=== PATIENT | male | born 1930 | race American Indian/Alaskan Native ===

== ENCOUNTER 2022-02-14 19:17 | Inpatient (IN) | payer OTHER ==
[2022-02-14] MEDS ORDERED: ALBUTEROL 2.5 MG/3 ML NEBU IH PRN (20:41)
[2022-02-14] MEDS ORDERED: ONDANSETRON 4 MG/2 ML INJ IV PRN (20:41)
[2022-02-14] MEDS ORDERED: SODIUM CHLORIDE 0.9% 1000 ML IV SOLN IV SCH (20:41)
[2022-02-14] MEDS ORDERED: ACETAMINOPHEN 325 MG TAB PO PRN ×2 (20:41)
[2022-02-14] MEDS ORDERED: HYDROmorphone 0.5 MG/0.5 ML INJ IV PRN ×2 (20:41)
--- NOTE | 2022-02-14 20:44 | History and Physical Report ---
History of Present Illness Chief complaint: He is sick and his urine is dark and smells bad History of present illness: 89 YO Male with Vascular Dementia, Cerebral Atherosclerosis, BPH with Indwelling Cruz catheter presents ED for evaluation. Patient is confused with diminished cognition at time of evaluation is unable to provide history. Patient history taken from EMS staff, ED staff, as well as the patient's daughter was made available telephone for interview. As per daughter " he is sick and his urine is dark and smells bad". Patient reports that the patient has experienced the aforementioned symptoms over the past 2 days with persistent and worsening symptoms over the same timeframe. EMS notified and upon arrival the patient was found to be in distress and subsequent transported to [facility] for further care and evaluation of the aforementioned symptoms. The patient was seen and evaluated in the emergency department. All lab and imaging studies reviewed. Patient found to have a systolic blood pressure in the 60s with self suspected secondary to his urinary tract infection, as well as toxic metabolic encephalopathy. Patient admitted to ICU and initiated on sepsis protocol.. Care team consulted. Patient has diminished cognition at time of evaluation but has a positive gag reflex and is able to protect his airway without difficulty. No prior admission for review. No medication listed at time of admission for reconciliation. Advanced care planning conducted in ED. Past History Past Medical History: other (See HPI) Past Surgical History: No surgical history, Other (Reviewed) Social history: single. denies: smoking, alcohol abuse, prescription drug abuse Family history: hypertension Medications and Allergies Allergies Allergy/AdvReac Type Severity Reaction Status Date / Time No Known Allergies Allergy Verified 02/14/22 22:20 Active Meds: Active Medications Sodium Chloride (Nacl 0.9% 1000 Ml) 1,000 mls @ 999 mls/hr IV BOLUS ONE Stop: 02/14/22 22:00 NORepinephrine/NS 8 MG-250 ML (Norepinephrine/Ns 8 Mg-250 Ml (Double Conc)) 8 mg in 250 mls @ 11.907 mls/hr IV TITRATE DEREJE; Protocol Review of Systems ROS unobtainable: due to mental status Exam - Constitutional Vitals: Temp Pulse Resp BP Pulse Ox 98.2 F 86 16 63/16 12 L 02/14/22 19:23 02/14/22 20:27 02/14/22 19:23 02/14/22 20:29 02/14/22 20:27 General appearance: Present: mild distress - EENT Eyes: Present: PERRL ENT: hearing intact, clear oral mucosa, hearing decreased - Neck Neck: Present: supple, normal ROM - Respiratory Respiratory effort: normal Respiratory: bilateral: diminished - Cardiovascular Heart Sounds: Present: S1 & S2. Absent: rub, click - Extremities Extremities: pulses symmetrical, No edema Peripheral Pulses: abnormal (Capillary refill greater than 3.5 seconds) - Integumentary Integumentary: Present: clear, dry, clammy, decreased turgor - Musculoskeletal Musculoskeletal: generalized weakness - Psychiatric Psychiatric: no appropriate mood/affect, no intact judgment & insight, no memory intact - Neurologic Neurologic: CNII-XII intact, no focal deficits, moves all extremities, no gait normal Results - Labs CBC & Chem 7: 02/14/22 20:41 02/14/22 20:41 Assessment and Plan - Patient Problems (1) Sepsis Current Visit: Yes Status: Acute Qualifiers: Sepsis acute organ dysfunction status: with acute organ dysfunction Plan to address problem: Sepsis protocol: Chest x-ray, CBC, urinalysis, IV fluid resuscitation therapy, IV antibiotic therapy, monitor urine output every shift, monitor fluid balance, maintain mean arterial pressure greater than equal 65, IV pressor support, monit or fluid balance. Serial lactic acid level, blood culture. The high probability of a clinically significant, sudden or life threatening deterioration of the [cardiac, pulmonary, neuro, renal, infectious disease] system(s) required my full and direct attention, intervention and personal management. The aggregate critical care time was [95] minutes. This time is in addition to time spent performing reported procedures but includes the following: [x] Data Review and interpretation [x] Patient assessment and monitoring of vital signs [x] Documentation [x] Medication orders and management (2) UTI (urinary tract infection) Current Visit: Yes Status: Acute Qualifiers: Encounter type: initial encounter Plan to address problem: IV antibiotic therapy, supportive care. Blood culture, urinalysis. (3) Toxic metabolic encephalopathy Current Visit: Yes Status: Acute Plan to address problem: Treat sepsis, supportive care. Neuro check. (4) Hypertension Current Visit: Yes Status: Acute Qualifiers: Hypertension type: primary hypertension Qualified Code(s): I10 - Essential (primary) hypertension Plan to address problem: Monitor blood pressure every shift. Hold antihypertensive therapy for now. Patient currently hypotensive. (5) DVT prophylaxis Current Visit: Yes Status: Acute Plan to address problem: SCD to bilateral lower extremities while in bed (6) Advance care planning Current Visit: Yes Status: Acute Plan to address problem: Disease education done, care plan discussed, diagnoses discussed, prognosis discussed, patient is full code. +30 minutes. (7) Preventative health care Current Visit: Yes Status: Acute Plan to address problem: Patient to follow-up with primary care physician for all age and risk factor appropriate screening test. +30 minutes.
[2022-02-14] MEDS ORDERED: NORepinephrine/NS 8 MG-250 ML 8 MG/250 ML INFUS..BTL IV SCH (21:00)
[2022-02-14] MEDS ORDERED: SODIUM CHLORIDE 0.9% 1000 ML 1,000 ML IV ONE (21:00)
[2022-02-14 21:16] LABS: Basophils # (Auto) 0.2 K/mm3 (0.0-0.1); Basophils % (Auto) 1.8 % (0.0-1.8); Eosinophils % (Auto) 0.2 % (0.0-4.3); Hematocrit 26.3 % (35.5-45.6); Hemoglobin 8.9 gm/dl (11.8-15.2); Lymphocytes # (Auto) 0.9 K/mm3 (1.2-5.4); Lymphocytes % (Auto) 10.5 % (13.4-35.0); Mean Corpuscular HGB Conc 34 % (32-34); Mean Corpuscular Volume 88 fl (84-94); Monocytes # (Auto) 0.7 K/mm3 (0.0-0.8); Monocytes % (Auto) 7.8 % (0.0-7.3); Platelet Count 261 K/mm3 (140-440); Red Blood Count 2.98 M/mm3 (3.65-5.03); Red Cell Distribution Width 12.9 % (13.2-15.2)
[2022-02-14 21:41] LABS: BUN/Creatinine Ratio 22; Blood Urea Nitrogen 28 mg/dL (9-20); Calcium 7.2 mg/dL (8.4-10.2); Hemolysis Index 8
[2022-02-14] MEDS ORDERED: POTASSIUM CHLORIDE ER 20 MEQ TAB PO ONE (23:03)
--- NOTE | 2022-02-14 23:07 | Emergency Department Report ---
ED General Adult HPI - General Chief complaint: Urogenital-Male Stated complaint: URINARY RETENTION PUI?: No Time Seen by Provider: 02/14/22 19:36 Source: patient, EMS Mode of arrival: Stretcher Limitations: No Limitations - History of Present Illness Initial comments: Urinary retention for 48 hours. Daughter reports this has been an ongoing issue with the catheter. -: Gradual, days(s) Severity scale (0 -10): 0 Worsens with: none Associated Symptoms: weakness. denies: denies other symptoms, headaches, loss of appetite Treatments Prior to Arrival: none - Related Data Home Medications Medication Instructions Recorded Confirmed Last Taken Polyethylene Glycol 8000 7 gm PO DAILY 02/15/22 02/15/22 02/13/22 [Polyethylene Glycol] Potassium Chloride [K-Dur] 20 meq PO QDAY 02/15/22 02/15/22 02/13/22 Triamterene/Hydrochlorothiazid 0.5 tab PO DAILY 02/15/22 02/15/22 02/13/22 [Triamterene-Hctz 75-50 mg Tab] amLODIPine [Norvasc] 10 mg PO DAILY 02/15/22 02/15/22 02/13/22 levETIRAcetam [Keppra TAB] 500 mg PO BID 02/15/22 02/15/22 02/13/22 Allergies Allergy/AdvReac Type Severity Reaction Status Date / Time No Known Allergies Allergy Verified 02/14/22 22:20 ED Review of Systems ROS: Stated complaint: URINARY RETENTION Other details as noted in HPI Constitutional: denies: chills, fever Eyes: denies: eye pain, eye discharge, vision change ENT: denies: ear pain, throat pain Respiratory: denies: cough, shortness of breath, wheezing Cardiovascular: denies: chest pain, palpitations Endocrine: no symptoms reported Gastrointestinal: denies: abdominal pain, nausea, diarrhea Genitourinary: denies: urgency, dysuria Musculoskeletal: denies: back pain, joint swelling, arthralgia Skin: denies: rash, lesions Neurological: denies: headache, weakness, paresthesias Psychiatric: denies: anxiety, depression Hematological/Lymphatic: denies: easy bleeding, easy bruising ED Past Medical Hx - Past Medical History Previous Medical History?: Yes Hx Hypertension: No Hx CVA: No Additional medical history: michael in place - Social History Smoking Status: Never Smoker Substance Use Type: None - Medications Home Medications: Home Medications Medication Instructions Recorded Confirmed Last Taken Type Polyethylene Glycol 8000 7 gm PO DAILY 02/15/22 02/15/22 02/13/22 History [Polyethylene Glycol] Potassium Chloride [K-Dur] 20 meq PO QDAY 02/15/22 02/15/22 02/13/22 History Triamterene/Hydrochlorothiazid 0.5 tab PO DAILY 02/15/22 02/15/22 02/13/22 History [Triamterene-Hctz 75-50 mg Tab] amLODIPine [Norvasc] 10 mg PO DAILY 02/15/22 02/15/22 02/13/22 History levETIRAcetam [Keppra TAB] 500 mg PO BID 02/15/22 02/15/22 02/13/22 History ED Physical Exam - General Limitations: No Limitations General appearance: alert, cachectic - Head Head exam: Present: atraumatic, normocephalic - Eye Eye exam: Present: normal appearance - ENT ENT exam: Present: mucous membranes moist - Neck Neck exam: Present: normal inspection - Respiratory Respiratory exam: Present: normal lung sounds bilaterally. Absent: respiratory distress - Cardiovascular Cardiovascular Exam: Present: regular rate, normal rhythm. Absent: systolic murmur, diastolic murmur, rubs, gallop - GI/Abdominal GI/Abdominal exam: Present: soft, normal bowel sounds - Rectal Rectal exam: Present: deferred - Extremities Exam Extremities exam: Present: normal inspection - Back Exam Back exam: Present: normal inspection - Neurological Exam Neurological exam: Present: alert, oriented X3 - Psychiatric Psychiatric exam: Present: normal affect, normal mood - Skin Skin exam: Present: warm, dry, intact, normal color. Absent: rash ED Course Vital Signs 02/14/22 02/14/22 02/14/22 19:23 19:41 20:26 Temperature 98.2 F 98.3 F Pulse Rate 100 H 81 Respiratory 16 14 Rate Blood Pressure Blood Pressure 114/68 133/60 [Right] O2 Sat by Pulse 99 100 98 Oximetry 02/14/22 02/14/22 02/14/22 20:27 20:29 20:31 Temperature Pulse Rate 86 Respiratory Rate Blood Pressure 63/16 Blood Pressure 63/16 [Right] O2 Sat by Pulse 12 L 98 Oximetry 02/14/22 02/14/22 02/14/22 20:45 20:47 20:57 Temperature 97.8 F Pulse Rate Respiratory Rate Blood Pressure Blood Pressure 73/26 [Right] O2 Sat by Pulse 100 Oximetry 02/14/22 02/14/22 02/14/22 21:01 21:07 21:11 Temperature Pulse Rate 79 Respiratory 14 Rate Blood Pressure 73/26 Blood Pressure [Right] O2 Sat by Pulse 98 98 97 Oximetry 02/14/22 02/14/22 02/14/22 21:16 21:21 21:31 Temperature Pulse Rate Respiratory Rate Blood Pressure Blood Pressure 156/88 [Right] O2 Sat by Pulse 96 97 Oximetry 02/14/22 02/14/22 02/14/22 21:41 21:51 22:01 Temperature Pulse Rate Respiratory Rate Blood Pressure Blood Pressure [Right] O2 Sat by Pulse 97 99 99 Oximetry 02/14/22 02/14/22 02/14/22 22:11 22:21 22:31 Temperature Pulse Rate Respiratory Rate Blood Pressure Blood Pressure [Right] O2 Sat by Pulse 96 99 99 Oximetry 02/14/22 02/14/22 02/14/22 22:41 22:51 23:00 Temperature Pulse Rate Respiratory Rate Blood Pressure Blood Pressure [Right] O2 Sat by Pulse 98 98 99 Oximetry ED Medical Decision Making - Lab Data Result diagrams: 02/15/22 05:00 02/15/22 04:00 - Radiology Data Radiology results: report reviewed, image reviewed - Medical Decision Making hypotension noted , fluids given started on pressors started on abx , BP normalised, Critical care attestation.: If time is entered above; I have spent that time in minutes in the direct care of this critically ill patient, excluding procedure time. ED Disposition Clinical Impression: Urinary retention, Hypokalemia, Hypotension Disposition: ADMITTED INPATIENT Is pt being admited?: Yes Does the pt Need Aspirin: No Condition: Fair
--- NOTE | 2022-02-14 23:08 | XRay Report ---
CHEST 1 VIEW 02/14/2022 9:40 PM INDICATION / CLINICAL INFORMATION: cough, hypoxia. COMPARISON: None available. FINDINGS: SUPPORT DEVICES: None. HEART / MEDIASTINUM: No significant abnormality. LUNGS / PLEURA: Suspected mild emphysema and mild central peribronchial thickening. No evidence for p neumonia, pulmonary edema or pleural effusion. No pneumothorax. ADDITIONAL FINDINGS: Calcific atherosclerosis of the thoracic aorta. IMPRESSION: 1. Mild chronic findings, as detailed above, without acute radiographic process. Signer Name: Ciro Carey MD Signed: 02/14/2022 11:04 PM Workstation Name: [email or web address]
--- NOTE | 2022-02-14 23:21 | Procedure Note ---
Date of procedure: 02/14/22 Pre-op diagnosis: Sepsis Post-op diagnosis: same Procedure: Right femoral vein triple-lumen catheter placement under ultrasound guidance After informed consent was obtained a timeout was taken with the patient's nurse at bedside to verify the correct patient, the correct procedure, and the correct operative site. The patient was prepped and draped in the usual sterile fashion. Local anesthesia obtained with 1% lidocaine. Ultrasound was utilized to localize the right femoral vein without difficulty. The Seldinger technique was utilized under ultrasound guidance to access the right femoral vein with a seeker needle. A guidewire was then advanced via the seeker needle into the right femoral vein and the seeker needle subsequently removed. A scalpel was used to incise the skin at the insertion site. A dilator was then passed over the guidewire into the right femoral vein and subsequently removed. A preflush triple-lumen catheter was then advanced over the guidewire into the right femoral vein and the guidewire subsequently removed. All 3 ports flush and drawl with ease. 3-0 silk suture was utilized to suture the line in place. A Biopatch was placed at the insertion site. A sterile dressing was utilized to cover the triple-lumen catheter. Estimated blood loss minimal. Complications none. Specimens none. Anesthesia: local Surgeon: YOHANA SENA Estimated blood loss: minimal Pathology: none Condition: critical Disposition: ICU
[2022-02-15] MEDS ORDERED: POTASSIUM CHLORIDE 10 MEQ 10 MEQ/100 ML BAG IV ONE (00:51)
[2022-02-15] MEDS: CEFEPIME/NS 2 GM/100 ML 2 GM/100 ML BAG IV SCH ×3 (00:55→21:56)
[2022-02-15 01:26] LABS: Bilirubin,Urine NEG (Negative); Blood,Urine MOD (Negative); Color,Urine Yellow (Yellow); Protein,Urine <15 mg/dL mg/dL (Negative)
[2022-02-15 01:44] LABS: Bacteria,Urine 4+ /HPF (Negative); Mucus,Urine FEW /HPF; Triple Phosphate Crystal,Urine FEW; Urobilinogen,Urine < 2 mg/dL (<2.0)
[2022-02-15 01:48] LABS: Albumin 3.6 g/dL (3.9-5); Calcium 8.5 mg/dL (8.4-10.2)
[2022-02-15 05:18] LABS: Basophils # (Auto) 0.1 K/mm3 (0.0-0.1); Eosinophils # (Auto) 0.1 K/mm3 (0.0-0.4); Eosinophils % (Auto) 1.6 % (0.0-4.3); Hematocrit 28.3 % (35.5-45.6); Hemoglobin 9.7 gm/dl (11.8-15.2); Lymphocytes # (Auto) 0.5 K/mm3 (1.2-5.4); Lymphocytes % (Auto) 6.3 % (13.4-35.0); Mean Corpuscular HGB Conc 34 % (32-34); Mean Corpuscular Volume 88 fl (84-94); Monocytes # (Auto) 0.6 K/mm3 (0.0-0.8); Monocytes % (Auto) 7.8 % (0.0-7.3); Platelet Count 273 K/mm3 (140-440); Red Blood Count 3.22 M/mm3 (3.65-5.03); Red Cell Distribution Width 13.1 % (13.2-15.2)
[2022-02-15 05:31] LABS: Calcium 8.4 mg/dL (8.4-10.2)
--- NOTE | 2022-02-15 08:32 | Consultation ---
History of Present Illness Consult date: 02/15/22 Requesting physician: YOHANA SENA Reason for consult: other (Sepsis secondary to UTI) History of present illness: 89 YO Male with Vascular Dementia, Cerebral Atherosclerosis, BPH with Indwelling Cruz catheter presents ED for evaluation. Patient is confused with diminished cognition at time of evaluation is unable to provide history. Patient history taken from EMS staff, ED staff, as well as the patient's daughter was made available telephone for interview. As per daughter " he is sick and his urine is dark and smells bad". Patient reports that the patient has experienced the aforementioned symptoms over the past 2 days with persistent and worsening symptoms over the same timeframe. EMS notified and upon arrival the patient was found to be in distress and subsequent transported to [facility] for further care and evaluation of the aforementioned symptoms. The patient was seen and evaluated in the emergency department. All lab and imaging studies reviewed. Patient found to have a systolic blood pressure in the 60s with self suspected secondary to his urinary tract infection, as well as toxic metabolic encephalopathy. Patient admitted to ICU and initiated on sepsis protocol. ROS: Stated complaint: URINARY RETENTION Other details as noted in HPI Constitutional: denies: chills, fever Eyes: denies: eye pain, eye discharge, vision change ENT: denies: ear pain, throat pain Respiratory: denies: cough, shortness of breath, wheezing Cardiovascular: denies: chest pain, palpitations Endocrine: no symptoms reported Gastrointestinal: denies: abdominal pain, nausea, diarrhea Musculoskeletal: denies: back pain, joint swelling, arthralgia Skin: denies: rash, lesions Neurological: denies: headache, weakness, paresthesias Psychiatric: denies: anxiety, depression Hematological/Lymphatic: denies: easy bleeding, easy bruising Past History Past Medical History: other (See HPI) Past Surgical History: No surgical history, Other (Reviewed) Social history: single. denies: smoking, alcohol abuse, prescription drug abuse Family history: hypertension Medications and Allergies Allergies Allergy/AdvReac Type Severity Reaction Status Date / Time No Known Allergies Allergy Verified 02/14/22 22:20 Home Medications Medication Instructions Recorded Confirmed Last Taken Type Polyethylene Glycol 8000 7 gm PO DAILY 02/15/22 02/15/22 02/13/22 History [Polyethylene Glycol] Potassium Chloride [K-Dur] 20 meq PO QDAY 02/15/22 02/15/22 02/13/22 History Triamterene/Hydrochlorothiazid 0.5 tab PO DAILY 02/15/22 02/15/22 02/13/22 History [Triamterene-Hctz 75-50 mg Tab] amLODIPine [Norvasc] 10 mg PO DAILY 02/15/22 02/15/22 02/13/22 History levETIRAcetam [Keppra TAB] 500 mg PO BID 02/15/22 02/15/22 02/13/22 History Active Meds: Active Medications Acetaminophen (Acetaminophen 325 Mg Tab) 650 mg PO Q4H PRN PRN Reason: Pain MILD(1-3)/Fever >100.5/CORONA Albuterol (Albuterol 2.5 Mg/3 Ml Nebu) 2.5 mg IH Q4HRT PRN PRN Reason: Shortness Of Breath NORepinephrine/NS 8 MG-250 ML (Norepinephrine/Ns 8 Mg-250 Ml (Double Conc)) 8 mg in 250 mls @ 11.907 mls/hr IV TITRATE DEREJE; Protocol Last Titration: 02/15/22 04:42 Dose: 0 mcg/kg/min, 0 mls/hr Cefepime HCl (Cefepime/Ns 2 Gm/100 Ml) 2 gm in 100 mls @ 200 mls/hr IV Q12H S ; Protocol Last Admin: 02/15/22 00:55 Dose: 200 mls/hr Ondansetron HCl (Ondansetron 4 Mg/2 Ml Inj) 4 mg IV Q8H PRN PRN Reason: Nausea And Vomiting Oxycodone/Acetaminophen (Oxycodone /Acetaminophen 5-325mg Tab) 1 tab PO Q6H PRN PRN Reason: Pain, Moderate (4-6) Sodium Chloride (Sodium Chloride 0.9% 10 Ml Flush Syringe) 10 ml IV BID [facility] Last Admin: 02/15/22 00:52 Dose: Not Given Sodium Chloride (Sodium Chloride 0.9% 10 Ml Flush Syringe) 10 ml IV PRN PRN PRN Reason: LINE FLUSH Sodium Chloride (Sodium Chloride 0.9% 1000 Ml Iv Soln) 1,910 ml 30 ml/kg (1910 ml) IV ONCE DEREJE Physical Examination Vital signs: Vital Signs Temp Pulse Resp BP Pulse Ox 98.2 F 100 H 16 114/68 99 02/14/22 19:23 02/14/22 19:23 02/14/22 19:23 02/14/22 19:23 02/14/22 19:23 Vitals reviewed General appearance: Present: no distress, chronically ill looking - EENT Eyes: Present: PERRL ENT: hearing intact, clear dry mucosa, hearing decreased - Neck Neck: Present: supple, normal ROM - Respiratory Respiratory effort: normal Respiratory: bilateral: diminished - Cardiovascular Heart Sounds: Present: S1 & S2. Absent: rub, click - Extremities Extremities: pulses symmetrical, No edema Peripheral Pulses: abnormal (Capillary refill greater than 3.5 seconds) - Integumentary Integumentary: Present: clear, dry, clammy, decreased turgor - Musculoskeletal Musculoskeletal: generalized weakness - Psychiatric Psychiatric: appropriate mood/affect, General appearance: no acute distress, alert, other (chronically ill looking) Eyes: non-icteric ENT: oropharynx dry Neck: supple Effort: normal, mildly labored Ascultation: Bilateral: clear, diminished breath sounds Cardiovascular: regular rate and rhythm, other (S1,S2) Gastrointestinal: normoactive bowel sounds, soft, non-tender, other (Cruz catheter, right femoral CVL) Integumentary: normal Extremities: no cyanosis, no edema normal mental status, non-focal exam, pupils equal and round, CN II-XII normal, motor strength normal and mood appropriate, affect normal Results - Laboratory Findings CBC and BMP: 02/16/22 03:59 02/16/22 03:59 Abnormal lab findings: Abnormal Labs 02/14/22 02/14/22 02/14/22 20:41 20:41 22:16 RBC 2.98 L Hgb 8.9 L Hct 26.3 L RDW 12.9 L Lymph % (Auto) 10.5 L Blount % (Auto) 7.8 H Lymph # (Auto) 0.9 L Baso # (Auto) 0.2 H Seg Neutrophils % 79.7 H Potassium 3.1 L 3.4 L Chloride 107.8 H Carbon Dioxide 19 L 20 L BUN 28 H 28 H Creatinine 1.4 H Glucose 137 H Calcium 7.2 L Troponin T Total Protein 5.5 L Albumin 3.6 L Urine pH Urine WBC (Auto) 02/14/22 02/15/22 02/15/22 22:17 01:18 04:00 RBC Hgb Hct RDW Lymph % (Auto) Blount % (Auto) Lymph # (Auto) Baso # (Auto) Seg Neutrophils % Potassium Chloride Carbon Dioxide BUN 27 H Creatinine 1.4 H Glucose Calcium Troponin T 0.093 H Total Protein Albumin Urine pH 8.0 H Urine WBC (Auto) 142.0 H 02/15/22 05:00 RBC 3.22 L Hgb 9.7 L Hct 28.3 L RDW 13.1 L Lymph % (Auto) 6.3 L Blount % (Auto) 7.8 H Lymph # (Auto) 0.5 L Baso # (Auto) Seg Neutrophils % 83.3 H Potassium Chloride Carbon Dioxide BUN Creatinine Glucose Calcium Troponin T Total Protein Albumin Urine pH Urine WBC (Auto) - Diagnostic Findings Chest x-ray: image reviewed (No acute infiltrates) Assessment and Plan Sepsis, with hypotesnion- briefly required vasopressor support UTI Toxic metabolic encephalopathy h/o Hypertension Mild protein calorie malnutrition - give 500 mls LR bolus for hypotension - continue antibitoics for UTI, follow cultures and de-escalate based on culture data and clinical response (Cefepime) - accuchecks with glycemic control per SSI (While critically ill target blood glucose of 140-180 mg/dL; avoid hypoglycemia) - avoid nephrotoxins, renally dose all medications - avoid benzodiazepines, reduce the possibility of delirium - prn analgesia per pain score - Maintenance of sleep-wake cycle, avoid delirium -VTE prophylaxis - Hold home antihypertensives to allow for recovery of his blood pressure -Get more medical records to understand if the Cruz catheter was placed by Urology - Monitor hemodynamics closely -Discontinue femoral CVL -Nutrition consult to optimize nutritional status Discussed care plan with nursing care and clinical pharmacist during IDT rounds CONDITION: CRITICAL PROGNOSIS: GUARDED CODE STATUS: FULL CODE The high probability of a clinically significant, sudden or life-threatening deterioration of the [ cardiovascular, urologic] system(s) required my full and direct attention, intervention and personal management. The aggregate critical care time was [35] minutes without overlap. Time includes spent on; [x] Data Review and interpretation [x] Patient assessment and monitoring of vital signs [x] Documentation [x] Medication orders and management
[2022-02-15] MEDS ORDERED: LACTATED RINGERS 250 ML IV SCH (09:15)
--- NOTE | 2022-02-15 12:06 | Progress Note ---
Assessment and Plan Assessment and plan: This is a 89 year-old male with known past medical history of vascular dementia, cerebral atherosclerosis, HTN, BPH with chronic indwelling catheter, recurrent UTIs, and seizure disorder admitted for septic shock secondary to UTI Hospital Course to Date: 02/15: Mentation improved, calm and pleasant but only AAO to self. Per patient's daughter patient does have dementia but functional at home. Patient is off pressors this am, BP still marginal, 250cc IVF bolus given. Patient remains afebrile, cultures pending. Continue current IV empiric for now. Per patient's daughter, patient has issues with his prostate and have had an indwelling catheter for over 5 years now. [facility] nurse visit patient once a month to exchange the michael cath. She reported that patient was at [place] last month for UTI received X1 day of IV abx then was discharge back home the next day. Indwelling Catheter was exchanged last month at [place]. Will exchange michael catheter and monitor patient overnight in the ICU. Resume home meds once meds list is available, daughter to call nursing staffs today with current medications list. Assessment and Plan #Septic Shock 06/22 #Urinary Tract Infection(UTI) #H/o BPH with Chronic Indwelling Catheter - Presented with AMS and hypotension required Levophed gtt. UA consistent for UTI - Cultures pending - Pressors off this am, BP borderline. 250 cc IVF bolus given - Continue current empiric IV Abx- Cefepine - Exchange Michael Catheter - Continue blood pressure monitor per protocol - Maintain MAP above 65 - Continue to F/U on B.cult - Daily CBC monitor #Acute Metabolic Encephalopathy #Vascular Dementia #H/o Seizure Disorder - most likely secondary to above - Mentation improved, h/o underline dementia - Treat underlying cause - Frequent reorientation - Avoid benzodiazepine to reduce the possibility of delirium - Prn analgesia for pain control - Maintenance of sleep-wake cycle - Resume home AED once meds list is available #Hypertension - Presented with hypotension, BP still borderline s/p IVF bolus - Hold all antihypertensive regimen for now - Continue blood pressure monitor per protocol - Maintain MAP above 65 #GI/DVT Prophylaxis - PPI- Pepcid - Heparin subQ - SCD to bilateral lower extremities while in bed #Advance Care Planning - Disease education, care plan, diagnoses, and prognosis thoroughly discussed with patient's daughter via phone. All questions and concerns were addressed at this time. Patient's daughter verbalized understanding and agreed with current care plan. Patient is a FULL Code. The high probability of a clinically significant, sudden or life threatening deterioration of the [multiple] system(s) required my full and direct attention, intervention and personal management. The aggregate critical care time was [60] minutes. This time is in addition to time spent performing reported procedures but includes the following: [x] Data Review and interpretation [x] Patient assessment and monitoring of vital signs [x] Documentation [x] Medication orders and management Disposition Plan: ICU Total Time Spent with Patient (Minutes): 60 History Interval history: Patient seen and examined at the bedside. Awake but pleasantly confused, only oriented to self. Stable on RA, denied any pain nor any discomfort. Off Levophed gtt this am, BP still borderline but stable. HOLLIE overnight Hospitalist Physical - Constitutional Vitals: Temp Pulse Resp BP Pulse Ox 97.8 F 63 10 L 117/52 100 02/14/22 20:47 02/15/22 10:21 02/15/22 10:21 02/15/22 10:21 02/15/22 10:21 General appearance: Present: no acute distress, well-nourished - EENT Eyes: Present: PERRL ENT: hearing intact - Neck Neck: Present: normal ROM - Respiratory Respiratory effort: normal Respiratory: bilateral: CTA - Cardiovascular Rhythm: regular Heart Sounds: Present: S1 & S2 - Extremities Extremities: no ischemia, pulses intact, pulses symmetrical Peripheral Pulses: within normal limits - Abdominal General gastrointestinal: soft, non-distended, normal bowel sounds - Integumentary Integumentary: Present: warm, dry - Psychiatric Psychiatric: appropriate mood/affect, cooperative, other (Confused, only AAO to self) - Neurologic Neurologic: moves all extremities, other (Confused, only AAO to self) - Allied Health Allied health notes reviewed: nursing, case management HEART Score - HEART Score Troponin: Troponin T 0.093 ng/mL (0.00-0.029) H 02/14/22 22:17 Results - Labs CBC & Chem 7: 02/15/22 05:00 02/15/22 04:00 Labs: Laboratory Last Values WBC 7.6 K/mm3 (4.5-11.0) 02/15/22 05:00 RBC 3.22 M/mm3 (3.65-5.03) L 02/15/22 05:00 Hgb 9.7 gm/dl (11.8-15.2) L 02/15/22 05:00 Hct 28.3 % (35.5-45.6) L 02/15/22 05:00 MCV 88 fl (84-94) 02/15/22 05:00 MCH 30 pg (28-32) 02/15/22 05:00 MCHC 34 % (32-34) 02/15/22 05:00 RDW 13.1 % (13.2-15.2) L 02/15/22 05:00 Plt Count 273 K/mm3 (140-440) 02/15/22 05:00 Lymph % (Auto) 6.3 % (13.4-35.0) L 02/15/22 05:00 Randolph % (Auto) 7.8 % (0.0-7.3) H 02/15/22 05:00 Eos % (Auto) 1.6 % (0.0-4.3) 02/15/22 05:00 Baso % (Auto) 1.0 % (0.0-1.8) 02/15/22 05:00 Lymph # (Auto) 0.5 K/mm3 (1.2-5.4) L 02/15/22 05:00 Randolph # (Auto) 0.6 K/mm3 (0.0-0.8) 02/15/22 05:00 Eos # (Auto) 0.1 K/mm3 (0.0-0.4) 02/15/22 05:00 Baso # (Auto) 0.1 K/mm3 (0.0-0.1) 02/15/22 05:00 Seg Neutrophils % 83.3 % (40.0-70.0) H 02/15/22 05:00 Seg Neutrophils # 6.4 K/mm3 (1.8-7.7) 02/15/22 05:00 Sodium 139 mmol/L (137-145) 02/15/22 04:00 Potassium 3.6 mmol/L (3.6-5.0) 02/15/22 04:00 Chloride 105.6 mmol/L (98-107) 02/15/22 04:00 Carbon Dioxide 23 mmol/L (22-30) 02/15/22 04:00 Anion Gap 14 mmol/L 02/15/22 04:00 BUN 27 mg/dL (9-20) H 02/15/22 04:00 Creatinine 1.4 mg/dL (0.8-1.3) H 02/15/22 04:00 Estimated GFR 58 ml/min 02/15/22 04:00 BUN/Creatinine Ratio 19 % 02/15/22 04:00 Glucose 98 mg/dL (75-100) 02/15/22 04:00 Lactic Acid 0.90 mmol/L (0.7-2.0) 02/15/22 01:00 Calcium 8.4 mg/dL (8.4-10.2) 02/15/22 04:00 Total Bilirubin 0.60 mg/dL (0.1-1.2) 02/14/22 22:16 AST 17 units/L (5-40) 02/14/22 22:16 ALT 9 units/L (7-56) 02/14/22 22:16 Alkaline Phosphatase 87 units/L (35-129) 02/14/22 22:16 Troponin T 0.093 ng/mL (0.00-0.029) H 02/14/22 22:17 Total Protein 5.5 g/dL (6.3-8.2) L 02/14/22 22:16 Albumin 3.6 g/dL (3.9-5) L 02/14/22 22:16 Albumin/Globulin Ratio 1.9 % 02/14/22 22:16 Lipase 45 units/L (13-60) 02/14/22 22:16 Urine Color Yellow (Yellow) 02/15/22 01:18 Urine Turbidity Cloudy (Clear) 02/15/22 01:18 Urine pH 8.0 (5.0-7.0) H 02/15/22 01:18 Ur Specific Entiat 1.005 (1.003-1.030) 02/15/22 01:18 Urine Protein <15 mg/dl mg/dL (Negative) 02/15/22 01:18 Urine Glucose (UA) Neg mg/dL (Negative) 02/15/22 01:18 Urine Ketones Tr mg/dL (Negative) 02/15/22 01:18 Urine Blood Mod (Negative) 02/15/22 01:18 Urine Nitrite Neg (Negative) 02/15/22 01:18 Urine Bilirubin Neg (Negative) 02/15/22 01:18 Urine Urobilinogen < 2 mg/dL (<2.0) 02/15/22 01:18 Ur Leukocyte Esterase Lg (Negative) 02/15/22 01:18 Urine WBC (Auto) 142.0 /HPF (0.0-6.0) H 02/15/22 01:18 Urine RBC (Auto) 45.0 /HPF (0.0-6.0) 02/15/22 01:18 U Epithel Cells (Auto) 1.0 /HPF (0-13.0) 02/15/22 01:18 Urine Bacteria (Auto) 4+ /HPF (Negative) 02/15/22 01:18 Urine WBC Clumps 2+ /HPF 02/15/22 01:18 Triple Phos Crystals Few 02/15/22 01:18 Urine Mucus Few /HPF 02/15/22 01:18 Urine Yeast (Budding) 1+ /HPF 02/15/22 01:18 Blood Type O POSITIVE 02/14/22 20:46 Antibody Screen Negative 02/14/22 20:46 Michael/IV: Voiding Method Indwelling Catheter Active Medications - Current Medications Current Medications: Generic Name Dose Route Start Last Admin Trade Name Freq PRN Reason Stop Dose Admin Acetaminophen 650 mg 02/14/22 20:41 Acetaminophen 325 Mg Tab PO Q4H PRN Pain MILD(1-3)/Fever >100.5/CORONA Albuterol 2.5 mg 02/14/22 20:41 Albuterol 2.5 Mg/3 Ml Nebu IH Q4HRT PRN Shortness Of Breath NORepinephrine/NS 8 MG-250 ML 8 mg in 250 mls @ 11.907 mls/hr 02/14/22 21:00 02/15/22 04:42 Norepinephrine/Ns 8 Mg-250 Ml (Double Conc) IV 0 mcg/kg/min TITRATE DEREJE 0 mls/hr Titration Protocol 0.1 MCG/KG/MIN Cefepime HCl 2 gm in 100 mls @ 200 mls/hr 02/14/22 22:00 02/15/22 10:32 Cefepime/Ns 2 Gm/100 Ml IV 200 mls/hr Q12H DEREJE Administration Protocol Ondansetron HCl 4 mg 02/14/22 20:41 Ondansetron 4 Mg/2 Ml Inj IV Q8H PRN Nausea And Vomiting Oxycodone/Acetaminophen 1 tab 02/14/22 20:41 Oxycodone /Acetaminophen 5-325mg Tab PO Q6H PRN Pain, Moderate (4-6) Sodium Chloride 10 ml 02/14/22 22:00 02/15/22 10:23 Sodium Chloride 0.9% 10 Ml Flush Syringe IV 10 ml BID DEREJE Administration Sodium Chloride 10 ml 02/14/22 20:41 Sodium Chloride 0.9% 10 Ml Flush Syringe IV PRN PRN LINE FLUSH
--- NOTE | 2022-02-15 17:43 | Electrocardiograph Report ---
[facility] Test Date: 2022-02-15 Test Time: 08:18:22 Pat Name: ROCÍO NIEVES Department: Room: A261 1 Gender: M Drama Director: ANTOINE : 1930 Requested By: YUSRA RICO Order Number: [id number] Reading MD: Jerrell Covarrubias Measurements Intervals [place] Rate: 74 P: 80 [place]: 201 QRS: -6 QRSD: 80 T: 55 QT: 418 QTc: 464 Interpretive Statements Sinus rhythm Low voltage, extremity leads Anteroseptal infarct, old No previous ECG available for comparison Electronically Signed On 02-15-2022 17:42:52 EDT by Jerrell Covarrubias
[2022-02-15] MEDS: HEPARIN 5,000 UNIT/1 ML VIAL SUB-Q SCH (21:56)
[2022-02-16 04:46] LABS: Hematocrit 26.5 % (35.5-45.6); Hemoglobin 9.3 gm/dl (11.8-15.2); Mean Corpuscular HGB Conc 35 % (32-34); Mean Corpuscular Volume 88 fl (84-94); Platelet Count 220 K/mm3 (140-440); Red Blood Count 3.02 M/mm3 (3.65-5.03); Red Cell Distribution Width 13.1 % (13.2-15.2)
[2022-02-16 05:03] LABS: Calcium 8.7 mg/dL (8.4-10.2)
[2022-02-16] MEDS ORDERED: LACTATED RINGERS 500 ML IV ONE (10:00)
[2022-02-16] MEDS: CEFEPIME/NS 2 GM/100 ML 2 GM/100 ML BAG IV SCH ×2 (10:41→23:34)
[2022-02-16] MEDS: HEPARIN 5,000 UNIT/1 ML VIAL SUB-Q SCH ×2 (10:42→23:35)
[2022-02-16] MEDS: FAMOTIDINE 20 MG TAB PO SCH (10:42)
[2022-02-16] MEDS: levETIRAcetam 500 MG TAB PO SCH ×2 (10:42→23:36)
[2022-02-16] MEDS: K-PHOS NEUTRAL 250 MG TAB PO SCH ×3 (10:42→18:17)
--- NOTE | 2022-02-16 11:38 | Progress Note ---
<THELMA AWAD - Last Filed: 02/16/22 18:18> Assessment and Plan Assessment and plan: This is a 89 year-old male with known past medical history of vascular dementia, cerebral atherosclerosis, HTN, BPH with chronic indwelling catheter, recurrent UTIs, and seizure disorder admitted for septic shock secondary to UTI Hospital Course to Date: 02/15: Mentation improved, calm and pleasant but only AAO to self. Per patient's daughter patient does have dementia but functional at home. Patient is off pressors this am, BP still marginal, 250cc IVF bolus given. Patient remains afebrile, cultures pending. Continue current IV empiric for now. Per patient's daughter, patient has issues with his prostate and have had an indwelling catheter for over 5 years now. [facility] nurse visit patient once a month to exchange the michael cath. She reported that patient was at [facility] last month for UTI received X1 day of IV abx then was discharge back home the next day. Indwelling Catheter was exchanged last month at [facility]. Will exchange michael catheter and monitor patient overnight in the ICU. Resume home meds once meds list is available, daughter to call nursing staffs today with c urrent medications list. 02/16: Remains stable on RA, back to baseline mentation per patient's daughter. Still with borderline hypotension this am s/p 500 cc IVF, will continue gentle IVF hydration X1L. PT/OT ordered. Patient is stable for transfer to the floor. Assessment and Plan #Septic Shock 2/2 #Urinary Tract Infection(UTI) #H/o BPH with Chronic Indwelling Catheter - Presented with AMS and hypotension required Levophed gtt. UA consistent for UTI - Urine culture with GNR, blood cultures with NGTD - Pressors off. still with borderline hypotension s/p 500 cc IVF - Continue cont. IVF hydration X1L - Continue current empiric IV Abx- Cefepine - Exchange Michael Catheter - Continue blood pressure monitor per protocol - Maintain MAP above 65 - Continue to F/U on B.cult - Daily CBC monitor #Acute Metabolic Encephalopathy-improved #Vascular Dementia #H/o Seizure Disorder - most likely secondary to above - back to baseline mentation per daughter - Treat underlying cause - Frequent reorientation - Avoid benzodiazepine to reduce the possibility of delirium - Prn analgesia for pain control - Maintenance of sleep-wake cycle - home AED resumed - Fall precaution, Seizure precaution #Hypertension - Presented with hypotension, BP still borderline s/p IVF bolus - Hold all antihypertensive regimen for now - Continue blood pressure monitor per protocol - Maintain MAP above 65 #GI/DVT Prophylaxis - PPI- Pepcid - Heparin subQ - SCD to bilateral lower extremities while in bed #Advance Care Planning - Disease education, care plan, diagnoses, and prognosis thoroughly discussed with patient's daughter via phone. All questions and concerns were addressed at this time. Patient's daughter verbalized understanding and agreed with current care plan. Patient is a FULL Code. The high probability of a clinically significant, sudden or life threatening deterioration of the [multiple] system(s) required my full and direct attention, intervention and personal management. The aggregate critical care time was [60] minutes. This time is in addition to time spent performing reported procedures but includes the following: [x] Data Review and interpretation [x] Patient assessment and monitoring of vital signs [x] Documentation [x] Medication orders and management Disposition Plan: ICU Total Time Spent with Patient (Minutes): 60 History Interval history: Patient seen and examined at the bedside. Remains stable on RA, pleasantly confused. Still with borderline hypotension s/p 500 IVF bolus, BP improved. Otherwise HOLLIE overnight Hospitalist Physical - Constitutional Vitals: Temp Pulse Resp BP Pulse Ox 98.1 F 67 12 98/44 98 02/16/22 00:00 02/16/22 08:00 02/16/22 08:00 02/16/22 08:00 02/16/22 10:00 General appearance: Present: no acute distress, well-nourished - EENT Eyes: Present: PERRL, EOM intact ENT: hearing intact - Neck Neck: Present: normal ROM - Respiratory Respiratory effort: normal Respiratory: bilateral: diminished - Cardiovascular Rhythm: regular Heart Sounds: Present: S1 & S2 - Extremities Extremities: no ischemia, pulses intact, pulses symmetrical Peripheral Pulses: within normal limits - Abdominal General gastrointestinal: soft, non-distended, normal bowel sounds - Integumentary Integumentary: Present: warm, dry - Psychiatric Psychiatric: appropriate mood/affect, cooperative - Neurologic Neurologic: CNII-XII intact, moves all extremities - Allied Health Allied health notes reviewed: nursing, case management HEART Score - HEART Score Troponin: Troponin T 0.093 ng/mL (0.00-0.029) H 02/14/22 22:17 Results - Labs CBC & Chem 7: 02/16/22 03:59 02/16/22 03:59 Labs: Laboratory Last Values WBC 7.3 K/mm3 (4.5-11.0) 02/16/22 03:59 RBC 3.02 M/mm3 (3.65-5.03) L 02/16/22 03:59 Hgb 9.3 gm/dl (11.8-15.2) L 02/16/22 03:59 Hct 26.5 % (35.5-45.6) L 02/16/22 03:59 MCV 88 fl (84-94) 02/16/22 03:59 MCH 31 pg (28-32) 02/16/22 03:59 MCHC 35 % (32-34) H 02/16/22 03:59 RDW 13.1 % (13.2-15.2) L 02/16/22 03:59 Plt Count 220 K/mm3 (140-440) 02/16/22 03:59 Lymph % (Auto) 6.3 % (13.4-35.0) L 02/15/22 05:00 [place] % (Auto) 7.8 % (0.0-7.3) H 02/15/22 05:00 Eos % (Auto) 1.6 % (0.0-4.3) 02/15/22 05:00 Baso % (Auto) 1.0 % (0.0-1.8) 02/15/22 05:00 Lymph # (Auto) 0.5 K/mm3 (1.2-5.4) L 02/15/22 05:00 [place] # (Auto) 0.6 K/mm3 (0.0-0.8) 02/15/22 05:00 Eos # (Auto) 0.1 K/mm3 (0.0-0.4) 02/15/22 05:00 Baso # (Auto) 0.1 K/mm3 (0.0-0.1) 02/15/22 05:00 Seg Neutrophils % 83.3 % (40.0-70.0) H 02/15/22 05:00 Seg Neutrophils # 6.4 K/mm3 (1.8-7.7) 02/15/22 05:00 Sodium 142 mmol/L (137-145) 02/16/22 03:59 Potassium 3.8 mmol/L (3.6-5.0) 02/16/22 03:59 Chloride 107.0 mmol/L (98-107) 02/16/22 03:59 Carbon Dioxide 27 mmol/L (22-30) 02/16/22 03:59 Anion Gap 12 mmol/L 02/16/22 03:59 BUN 25 mg/dL (9-20) H 02/16/22 03:59 Creatinine 1.5 mg/dL (0.8-1.3) H 02/16/22 03:59 Estimated GFR 53 ml/min 02/16/22 03:59 BUN/Creatinine Ratio 17 % 02/16/22 03:59 Glucose 99 mg/dL (75-100) 02/16/22 03:59 POC Glucose 120 mg/dL (70-105) H 02/15/22 12:37 Lactic Acid 0.90 mmol/L (0.7-2.0) 02/15/22 01:00 Calcium 8.7 mg/dL (8.4-10.2) 02/16/22 03:59 Phosphorus 2.20 mg/dL (2.5-4.5) L 02/16/22 03:59 Magnesium 2.20 mg/dL (1.7-2.3) 02/16/22 03:59 Total Bilirubin 0.60 mg/dL (0.1-1.2) 02/14/22 22:16 AST 17 units/L (5-40) 02/14/22 22:16 ALT 9 units/L (7-56) 02/14/22 22:16 Alkaline Phosphatase 87 units/L (35-129) 02/14/22 22:16 Troponin T 0.093 ng/mL (0.00-0.029) H 02/14/22 22:17 Total Protein 5.5 g/dL (6.3-8.2) L 02/14/22 22:16 Albumin 3.6 g/dL (3.9-5) L 02/14/22 22:16 Albumin/Globulin Ratio 1.9 % 02/14/22 22:16 Lipase 45 units/L (13-60) 02/14/22 22:16 Urine Color Yellow (Yellow) 02/15/22 01:18 Urine Turbidity Cloudy (Clear) 02/15/22 01:18 Urine pH 8.0 (5.0-7.0) H 02/15/22 01:18 Ur Specific [place] 1.005 (1.003-1.030) 02/15/22 01:18 Urine Protein <15 mg/dl mg/dL (Negative) 02/15/22 01:18 Urine Glucose (UA) Neg mg/dL (Negative) 02/15/22 01:18 Urine Ketones Tr mg/dL (Negative) 02/15/22 01:18 Urine Blood Mod (Negative) 02/15/22 01:18 Urine Nitrite Neg (Negative) 02/15/22 01:18 Urine Bilirubin Neg (Negative) 02/15/22 01:18 Urine Urobilinogen < 2 mg/dL (<2.0) 02/15/22 01:18 Ur Leukocyte Esterase Lg (Negative) 02/15/22 01:18 Urine WBC (Auto) 142.0 /HPF (0.0-6.0) H 02/15/22 01:18 Urine RBC (Auto) 45.0 /HPF (0.0-6.0) 02/15/22 01:18 U Epithel Cells (Auto) 1.0 /HPF (0-13.0) 02/15/22 01:18 Urine Bacteria (Auto) 4+ /HPF (Negative) 02/15/22 01:18 Urine WBC Clumps 2+ /HPF 02/15/22 01:18 Triple Phos Crystals Few 02/15/22 01:18 Urine Mucus Few /HPF 02/15/22 01:18 Urine Yeast (Budding) 1+ /HPF 02/15/22 01:18 Blood Type O POSITIVE 02/14/22 20:46 Antibody Screen Negative 02/14/22 20:46 Microbiology: Microbiology 02/15/22 13:37 Urine,Catheterized - Straight Catheter Urine Culture - Preliminary Gram Negative Pantera 02/15/22 12:49 Peripheral/Venous Blood Culture - Preliminary Culture in Progress 02/15/22 11:46 Peripheral/Venous Blood Culture - Preliminary Culture in Progress Michael/IV: Voiding Method Indwelling Catheter Active Medications - Current Medications Current Medications: Generic Name Dose Route Start Last Admin Trade Name Freq PRN Reason Stop Dose Admin Acetaminophen 650 mg 02/14/22 20:41 Acetaminophen 325 Mg Tab PO Q4H PRN Pain MILD(1-3)/Fever >100.5/CORONA Albuterol 2.5 mg 02/14/22 20:41 Albuterol 2.5 Mg/3 Ml Nebu IH Q4HRT PRN Shortness Of Breath Famotidine 20 mg 02/16/22 10:00 02/16/22 10:42 Famotidine 20 Mg Tab PO 20 mg QDAY DEREJE Administration Heparin Sodium (Porcine) 5,000 unit 02/15/22 22:00 02/16/22 10:42 Heparin 5,000 Unit/1 Ml Vial SUB-Q 5,000 unit Q12HR DEREJE Administration Cefepime HCl 2 gm in 100 mls @ 200 mls/hr 02/14/22 22:00 02/16/22 10:41 Cefepime/Ns 2 Gm/100 Ml IV 200 mls/hr Q12H DEREJE Administration Protocol Levetiracetam 500 mg 02/16/22 10:00 02/16/22 10:42 Levetiracetam 500 Mg Tab PO 500 mg BID DEREJE Administration Ondansetron HCl 4 mg 02/14/22 20:41 Ondansetron 4 Mg/2 Ml Inj IV Q8H PRN Nausea And Vomiting Oxycodone/Acetaminophen 1 tab 02/14/22 20:41 Oxycodone /Acetaminophen 5-325mg Tab PO Q6H PRN Pain, Moderate (4-6) Sodium Chloride 10 ml 02/14/22 22:00 02/16/22 10:43 Sodium Chloride 0.9% 10 Ml Flush Syringe IV 10 ml BID DEREJE Administration Sodium Chloride 10 ml 02/14/22 20:41 Sodium Chloride 0.9% 10 Ml Flush Syringe IV PRN PRN LINE FLUSH Sodium Phosphate 250 mg 02/16/22 10:00 02/16/22 10:42 K-Phos Neutral 250 Mg Tab PO 02/16/22 18:01 250 mg QID DEREJE Administration <OMKAR YANEZ - Last Filed: 02/17/22 07:20> Assessment and Plan Assessment and plan: I saw and evaluated the patient. I agree with the findings and the plan of care as documented in the Nurse Practitioner's~note, with the following corrections and additions. Hospitalist Physical - Constitutional Vitals: Temp Pulse Resp BP Pulse Ox 97.6 F 62 18 123/65 94 02/17/22 04:41 02/17/22 04:41 02/17/22 04:41 02/17/22 04:41 02/17/22 04:41 HEART Score - HEART Score Troponin: Troponin T 0.093 ng/mL (0.00-0.029) H 02/14/22 22:17 Results - Labs CBC & Chem 7: 02/16/22 03:59 02/16/22 03:59 Labs: Laboratory Last Values WBC 7.3 K/mm3 (4.5-11.0) 02/16/22 03:59 RBC 3.02 M/mm3 (3.65-5.03) L 02/16/22 03:59 Hgb 9.3 gm/dl (11.8-15.2) L 02/16/22 03:59 Hct 26.5 % (35.5-45.6) L 02/16/22 03:59 MCV 88 fl (84-94) 02/16/22 03:59 MCH 31 pg (28-32) 02/16/22 03:59 MCHC 35 % (32-34) H 02/16/22 03:59 RDW 13.1 % (13.2-15.2) L 02/16/22 03:59 Plt Count 220 K/mm3 (140-440) 02/16/22 03:59 Lymph % (Auto) 6.3 % (13.4-35.0) L 02/15/22 05:00 [place] % (Auto) 7.8 % (0.0-7.3) H 02/15/22 05:00 Eos % (Auto) 1.6 % (0.0-4.3) 02/15/22 05:00 Baso % (Auto) 1.0 % (0.0-1.8) 02/15/22 05:00 Lymph # (Auto) 0.5 K/mm3 (1.2-5.4) L 02/15/22 05:00 [place] # (Auto) 0.6 K/mm3 (0.0-0.8) 02/15/22 05:00 Eos # (Auto) 0.1 K/mm3 (0.0-0.4) 02/15/22 05:00 Baso # (Auto) 0.1 K/mm3 (0.0-0.1) 02/15/22 05:00 Seg Neutrophils % 83.3 % (40.0-70.0) H 02/15/22 05:00 Seg Neutrophils # 6.4 K/mm3 (1.8-7.7) 02/15/22 05:00 Sodium 142 mmol/L (137-145) 02/16/22 03:59 Potassium 3.8 mmol/L (3.6-5.0) 02/16/22 03:59 Chloride 107.0 mmol/L (98-107) 02/16/22 03:59 Carbon Dioxide 27 mmol/L (22-30) 02/16/22 03:59 Anion Gap 12 mmol/L 02/16/22 03:59 BUN 25 mg/dL (9-20) H 02/16/22 03:59 Creatinine 1.5 mg/dL (0.8-1.3) H 02/16/22 03:59 Estimated GFR 53 ml/min 02/16/22 03:59 BUN/Creatinine Ratio 17 % 02/16/22 03:59 Glucose 99 mg/dL (75-100) 02/16/22 03:59 POC Glucose 91 mg/dL (70-105) 02/16/22 09:33 Lactic Acid 0.90 mmol/L (0.7-2.0) 02/15/22 01:00 Calcium 8.7 mg/dL (8.4-10.2) 02/16/22 03:59 Phosphorus 2.20 mg/dL (2.5-4.5) L 02/16/22 03:59 Magnesium 2.20 mg/dL (1.7-2.3) 02/16/22 03:59 Total Bilirubin 0.60 mg/dL (0.1-1.2) 02/14/22 22:16 AST 17 units/L (5-40) 02/14/22 22:16 ALT 9 units/L (7-56) 02/14/22 22:16 Alkaline Phosphatase 87 units/L (35-129) 02/14/22 22:16 Troponin T 0.093 ng/mL (0.00-0.029) H 02/14/22 22:17 Total Protein 5.5 g/dL (6.3-8.2) L 02/14/22 22:16 Albumin 3.6 g/dL (3.9-5) L 02/14/22 22:16 Albumin/Globulin Ratio 1.9 % 02/14/22 22:16 Lipase 45 units/L (13-60) 02/14/22 22:16 Urine Color Yellow (Yellow) 02/15/22 01:18 Urine Turbidity Cloudy (Clear) 02/15/22 01:18 Urine pH 8.0 (5.0-7.0) H 02/15/22 01:18 Ur Specific [place] 1.005 (1.003-1.030) 02/15/22 01:18 Urine Protein <15 mg/dl mg/dL (Negative) 02/15/22 01:18 Urine Glucose (UA) Neg mg/dL (Negative) 02/15/22 01:18 Urine Ketones Tr mg/dL (Negative) 02/15/22 01:18 Urine Blood Mod (Negative) 02/15/22 01:18 Urine Nitrite Neg (Negative) 02/15/22 01:18 Urine Bilirubin Neg (Negative) 02/15/22 01:18 Urine Urobilinogen < 2 mg/dL (<2.0) 02/15/22 01:18 Ur Leukocyte Esterase Lg (Negative) 02/15/22 01:18 Urine WBC (Auto) 142.0 /HPF (0.0-6.0) H 02/15/22 01:18 Urine RBC (Auto) 45.0 /HPF (0.0-6.0) 02/15/22 01:18 U Epithel Cells (Auto) 1.0 /HPF (0-13.0) 02/15/22 01:18 Urine Bacteria (Auto) 4+ /HPF (Negative) 02/15/22 01:18 Urine WBC Clumps 2+ /HPF 02/15/22 01:18 Triple Phos Crystals Few 02/15/22 01:18 Urine Mucus Few /HPF 02/15/22 01:18 Urine Yeast (Budding) 1+ /HPF 02/15/22 01:18 Blood Type O POSITIVE 02/14/22 20:46 Antibody Screen Negative 02/14/22 20:46 Microbiology: Microbiology 02/15/22 12:49 Peripheral/Venous Blood Culture - Preliminary NO GROWTH AFTER 24 HOURS 02/15/22 11:46 Peripheral/Venous Blood Culture - Preliminary NO GROWTH AFTER 24 HOURS 02/15/22 13:37 Urine,Catheterized - Straight Catheter Urine Culture - Preliminary Gram Negative Pantera Michael/IV: Voiding Method Indwelling Catheter Active Medications - Current Medications Current Medications: Generic Name Dose Route Start Last Admin Trade Name Freq PRN Reason Stop Dose Admin Acetaminophen 650 mg 02/14/22 20:41 02/16/22 16:09 Acetaminophen 325 Mg Tab PO 650 mg Q4H PRN Administration Pain MILD(1-3)/Fever >100.5/CORONA Albuterol 2.5 mg 02/14/22 20:41 Albuterol 2.5 Mg/3 Ml Nebu IH Q4HRT PRN Shortness Of Breath Famotidine 20 mg 02/16/22 10:00 02/16/22 10:42 Famotidine 20 Mg Tab PO 20 mg QDAY DEREJE Administration Heparin Sodium (Porcine) 5,000 unit 02/15/22 22:00 02/16/22 23:35 Heparin 5,000 Unit/1 Ml Vial SUB-Q 5,000 unit Q12HR DEREJE Administration Cefepime HCl 2 gm in 100 mls @ 200 mls/hr 02/14/22 22:00 02/16/22 23:34 Cefepime/Ns 2 Gm/100 Ml IV 200 mls/hr Q12H DEREJE Administration Protocol Levetiracetam 500 mg 02/16/22 10:00 02/16/22 23:36 Levetiracetam 500 Mg Tab PO 500 mg BID DEREJE Administration Ondansetron HCl 4 mg 02/14/22 20:41 Ondansetron 4 Mg/2 Ml Inj IV Q8H PRN Nausea And Vomiting Oxycodone/Acetaminophen 1 tab 02/14/22 20:41 02/17/22 01:22 Oxycodone /Acetaminophen 5-325mg Tab PO 1 tab Q6H PRN Administration Pain, Moderate (4-6) Sodium Chloride 10 ml 02/14/22 22:00 02/17/22 00:49 Sodium Chloride 0.9% 10 Ml Flush Syringe IV Not Given BID DEREJE Sodium Chloride 10 ml 02/14/22 20:41 Sodium Chloride 0.9% 10 Ml Flush Syringe IV PRN PRN LINE FLUSH
--- NOTE | 2022-02-16 12:04 | Progress Note ---
Assessment and Plan Sepsis UTI Toxic metabolic encephalopathy Hypertension DVT prophylaxis - received 500 mls LR bolus for hypotension with good response - contyinue volume resuscitation with LR @ 75 ml's/hr X 1 liuter - complete AB's per ID recommendations (Cefepime) - continue accuchecks with glycemic control per SSI (While critically ill target blood glucose of 140-180 mg/dL; avoid hypoglycemia) - prn supplemental oxygen for target O2 sat's > 90% acutely - aspiration precautions - prn bronchodilators with pulmonary hygiene per RT - avoid nephrotoxins, renally dose all medications - avoid benzodiazepine's, reduce the possibility of delirium - prn analgesia per pain score - Maintenance of sleep-wake cycle, avoid delirium - G.I. & VTE prophylaxis - PT/OT/ROM exercises - continue mobility protocols for pressure ulcer prophylaxis - Monitor hemodynamics closely - continue other care per attending / other consultants - discharge planning ongoing concurrently .... Re-evaluate in am & prn .... transfer to medical floor if remains normotensive post volume resuscitation CONDITION: CRITICAL PROGNOSIS: GUARDED CODE STATUS: FULL CODE The high probability of a clinically significant, sudden or life-threatening deterioration of the [respiratory, cardiovascular & urologic] system(s) required my full and direct attention, intervention and personal management. The aggregate critical care time was [32] minutes without overlap. Time includes spent on; [x] Data Review and interpretation [x] Patient assessment and monitoring of vital signs [x] Documentation [x] Medication orders and management Subjective Date of service: 02/16/22 Principal diagnosis: Sepsis; UTI; Acute Toxic metabolic encephalopathy; HTN Interval history: Patient is seen today for: Sepsis; UTI; Acute Toxic metabolic encephalopathy; HTN Seen and examined at bedside; 24hour events reviewed; nursing and respiratory care staff consulted; no adverse overnight events reported to me; resting peacefully in bed; denies acute chest pains or palpitations; receiving LR bolus re: hypotension; denies N/VF/C Objective Vital Signs - 12hr 02/16/22 02/16/22 02/16/22 00:07 01:00 02:00 Pulse Rate 74 61 66 Respiratory 15 12 10 L Rate Blood Pressure 87/38 88/36 98/44 O2 Sat by Pulse 98 100 99 Oximetry 02/16/22 02/16/22 02/16/22 03:01 03:59 04:01 Pulse Rate 69 70 Respiratory 11 L 15 Rate Blood Pressure 99/42 99/42 O2 Sat by Pulse 100 97 98 Oximetry 02/16/22 02/16/22 02/16/22 05:00 06:00 07:00 Pulse Rate 56 L 63 58 L Respiratory 11 L 12 10 L Rate Blood Pressure 100/38 103/44 101/44 O2 Sat by Pulse 96 98 100 Oximetry 02/16/22 02/16/22 08:00 10:00 Pulse Rate 67 Respiratory 12 Rate Blood Pressure 98/44 O2 Sat by Pulse 99 98 Oximetry Constitutional: no acute distress Eyes: non-icteric ENT: oropharynx moist Neck: supple, no lymphadenopathy, no JVD Effort: normal Ascultation: Bilateral: clear Percussion: Bilateral: not dull Cardiovascular: regular rate and rhythm Gastrointestinal: normoactive bowel sounds, soft, non-tender, non-distended, other (Cruz catheter) Integumentary: normal Extremities: no cyanosis, no edema, pulses normal, no ischemia or petechiae Neurologic: non-focal exam (grossly), pupils equal and round, CN II-XII normal, motor strength normal and Psychiatric: mood appropriate, affect normal, other (dementia) CBC and BMP: 02/16/22 03:59 02/16/22 03:59 Abnormal lab findings: Abnormal Labs 02/14/22 02/14/22 02/14/22 20:41 20:41 22:16 RBC 2.98 L Hgb 8.9 L Hct 26.3 L MCHC RDW 12.9 L Lymph % (Auto) 10.5 L [place] % (Auto) 7.8 H Lymph # (Auto) 0.9 L Baso # (Auto) 0.2 H Seg Neutrophils % 79.7 H Potassium 3.1 L 3.4 L Chloride 107.8 H Carbon Dioxide 19 L 20 L BUN 28 H 28 H Creatinine 1.4 H Glucose 137 H POC Glucose Calcium 7.2 L Phosphorus Troponin T Total Protein 5.5 L Albumin 3.6 L Urine pH Urine WBC (Auto) 02/14/22 02/15/22 02/15/22 22:17 01:18 04:00 RBC Hgb Hct MCHC RDW Lymph % (Auto) [place] % (Auto) Lymph # (Auto) Baso # (Auto) Seg Neutrophils % Potassium Chloride Carbon Dioxide BUN 27 H Creatinine 1.4 H Glucose POC Glucose Calcium Phosphorus Troponin T 0.093 H Total Protein Albumin Urine pH 8.0 H Urine WBC (Auto) 142.0 H 02/15/22 02/15/22 02/16/22 05:00 12:37 03:59 RBC 3.22 L 3.02 L Hgb 9.7 L 9.3 L Hct 28.3 L 26.5 L MCHC 35 H RDW 13.1 L 13.1 L Lymph % (Auto) 6.3 L [place] % (Auto) 7.8 H Lymph # (Auto) 0.5 L Baso # (Auto) Seg Neutrophils % 83.3 H Potassium Chloride Carbon Dioxide BUN Creatinine Glucose POC Glucose 120 H Calcium Phosphorus Troponin T Total Protein Albumin Urine pH Urine WBC (Auto) 02/16/22 03:59 RBC Hgb Hct MCHC RDW Lymph % (Auto) [place] % (Auto) Lymph # (Auto) Baso # (Auto) Seg Neutrophils % Potassium Chloride Carbon Dioxide BUN 25 H Creatinine 1.5 H Glucose POC Glucose Calcium Phosphorus 2.20 L Troponin T Total Protein Albumin Urine pH Urine WBC (Auto) Allied health notes reviewed: nursing
[2022-02-16] MEDS ORDERED: SODIUM CHLORIDE 0.9% 1000 ML 1,000 ML IV SCH (16:00)
[2022-02-16] MEDS ORDERED: SODIUM CHLORIDE 0.9% 500 ML 500 ML IV ONE (18:17)
[2022-02-17] MEDS: oxyCODONE /ACETAMINOPHEN 5-325MG TAB PO PRN ×2 (01:22→21:35)
--- NOTE | 2022-02-17 06:17 | Progress Note ---
Assessment and Plan 89 YO Male with Vascular Dementia, Cerebral Atherosclerosis, BPH with Indwelling Cruz catheter presents ED for evaluation. Patient is confused with diminished cognition at time of evaluation is unable to provide history. Patient history taken from EMS staff, ED staff, as well as the patient's daughter was made available telephone for interview. As per daughter " he is sick and his urine is dark and smells bad". Patient reports that the patient has experienced the aforementioned symptoms over the past 2 days with persistent and worsening symptoms over the same timeframe. EMS notified and upon arrival the patient was found to be in distress and subsequent transported to [facility] for further care and evaluation of the aforementioned symptoms. The patient was seen and evaluated in the emergency department. Patient found to have a systolic blood pressure in the 60s, suspected secondary to his urinary tract infection, Sepsis as well as toxic metabolic encephalopathy. Patient admitted to ICU and initiated on sepsis protocol. Patient has diminished cognition at time of evaluation but has a positive gag reflex and is able to protect his airway without difficulty. Patient treated for sepsis, UTI with Cefepime , I/V fluids and Norepinephrine. Urine culture grown gram negative rods. Blood cultures reported no growth so far. Patients blood pressure improved. Patient transfered to medical floor. Patient awake, appears still some what confused. Patient is on room air. O2 saturation 94%. No acute respiratory distress. Patient afebrile. No leukocytosis. Blood pressure 123/65, Pulse 62 , respirations 18. Chest xray done 12/14/21 reported Suspected mild emphysema and mild central peribronchial thickening. No evidence for pneumonia, pulmonary edema or pleural effusion. No pneumothorax. Patient presently on cefepime, S/C Heparin, Famotidine and albuterol inhaler. Patient awake, appears still confused. Able to give little history. Patient denies smoking, alcohol or drug abuse. Says worked in [employer] before retired. and has children 1. No known drug allergies. I spent critical care time of 40 minutes on this patient, reviewing the chart, examine the patient, review chest xray, lab results, talking to the nursing staff and work up plan of treatment in this critically ill patient. - Patient Problems (1) Sepsis Current Visit: Yes Status: Acute Qualifiers: Sepsis acute organ dysfunction status: with acute organ dysfunction Plan to address problem: Patient treated with cefepime, I/V fluids and Norepinephrine. Patients blood pressure improved. Blood pressure 123/65. Patient afebrile. No leukocytosis. (2) UTI (urinary tract infection) Current Visit: Yes Status: Acute Qualifiers: Encounter type: initial encounter Plan to address problem: Patient is on cefepime. (3) Hypotension Current Visit: Yes Status: Acute Plan to address problem: Patient treated with cefepime, I/V fluids and Norepinephrine. Patients blood pressure improved. Recent Blood pressure 123/65 (4) Toxic metabolic encephalopathy Current Visit: Yes Status: Acute Plan to address problem: Patient awake. Appears still confused. Management as per primary care and neurology. Subjective Date of service: 02/17/22 Principal diagnosis: Sepsis; UTI; Acute Toxic metabolic encephalopathy; HTN Interval history: 89 YO Male with Vascular Dementia, Cerebral Atherosclerosis, BPH with Indwelling Cruz catheter presents ED for evaluation. Patient is confused with diminished cognition at time of evaluation is unable to provide history. Patient history taken from EMS staff, ED staff, as well as the patient's daughter was made available telephone for interview. As per daughter " he is sick and his urine is dark and smells bad". Patient reports that the patient has experienced the aforementioned symptoms over the past 2 days with persistent and worsening symptoms over the same timeframe. EMS notified and upon arrival the patient was found to be in distress and subsequent transported to [facility] for further care and evaluation of the aforementioned symptoms. The patient was seen and evaluated in the emergency department. Patient found to have a systolic blood pressure in the 60s, suspected secondary to his urinary tract infection, Sepsis as well as toxic metabolic encephalopathy. Patient admitted to ICU and initiated on sepsis protocol. Patient has diminished cognition at time of evaluation but has a positive gag reflex and is able to protect his airway without difficulty. Patient treated for sepsis, UTI with Cefepime , I/V fluids and Norepinephrine. Urine culture grown gram negative rods. Blood cultures reported no growth so far. Patients blood pressure improved. Patient transfered to medical floor. Patient awake, appears still some what confused. Patient is on room air. O2 saturation 94%. No acute respiratory distress. Patient afebrile. No leukocytosis. Blood pressure 123/65, Pulse 62 , respirations 18. Chest xray done 12/14/21 reported Suspected mild emphysema and mild central peribronchial thickening. No evidence for pneumonia, pulmonary edema or pleural effusion. No pneumothorax. Patient presently on cefepime, S/C Heparin, Famotidine and albuterol inhaler. Patient awake, appears still confused. Able to give little history. Patient denies smoking, alcohol or drug abuse. Says worked in [employer] before retired. and has children 1. No known drug allergies. Objective Vital Signs - 12hr 02/16/22 02/16/22 02/16/22 19:01 19:52 20:00 Temperature Pulse Rate 60 72 Pulse Rate [ 56 L From Monitor] Respiratory 12 12 Rate Blood Pressure 95/40 115/23 O2 Sat by Pulse 100 100 100 Oximetry 02/16/22 02/16/22 02/16/22 20:04 21:00 21:59 Temperature 98.9 F Pulse Rate 55 L 61 Pulse Rate [ From Monitor] Respiratory 10 L 13 Rate Blood Pressure 97/46 97/46 O2 Sat by Pulse 100 100 Oximetry 02/16/22 02/16/22 02/16/22 22:00 22:01 23:01 Temperature Pulse Rate 59 L 60 68 Pulse Rate [ From Monitor] Respiratory 11 L 10 L 13 Rate Blood Pressure 97/46 108/48 102/52 O2 Sat by Pulse 100 100 100 Oximetry 02/17/22 02/17/22 02/17/22 00:00 01:22 02:22 Temperature Pulse Rate Pulse Rate [ 65 From Monitor] Respiratory 16 17 Rate Blood Pressure O2 Sat by Pulse 98 Oximetry 02/17/22 04:41 Temperature 97.6 F Pulse Rate 62 Pulse Rate [ From Monitor] Respiratory 18 Rate Blood Pressure 123/65 O2 Sat by Pulse 94 Oximetry Constitutional: no acute distress, alert, other (chronically ill looking. Weak. Appears confused.) Eyes: non-icteric ENT: oropharynx dry Neck: supple Effort: mildly labored Ascultation: Bilateral: diminished breath sounds Percussion: Bilateral: not dull Cardiovascular: regular rate and rhythm, other (S1,S2) Gastrointestinal: normoactive bowel sounds, soft, non-tender, other (Cruz catheter, right femoral CVL) Integumentary: normal Extremities: no cyanosis, no edema Neurologic: non-focal exam, pupils equal and round, CN II-XII normal, motor strength normal and Psychiatric: mood appropriate, depressed CBC and BMP: 02/16/22 03:59 02/16/22 03:59 Abnormal lab findings: Abnormal Labs 0902/14/22 02/14/22 20:41 20:41 22:16 RBC 2.98 L Hgb 8.9 L Hct 26.3 L MCHC RDW 12.9 L Lymph % (Auto) 10.5 L [place] % (Auto) 7.8 H Lymph # (Auto) 0.9 L Baso # (Auto) 0.2 H Seg Neutrophils % 79.7 H Potassium 3.1 L 3.4 L Chloride 107.8 H Carbon Dioxide 19 L 20 L BUN 28 H 28 H Creatinine 1.4 H Glucose 137 H POC Glucose Calcium 7.2 L Phosphorus Troponin T Total Protein 5.5 L Albumin 3.6 L Urine pH Urine WBC (Auto) 02/14/22 02/15/22 02/15/22 22:17 01:18 04:00 RBC Hgb Hct MCHC RDW Lymph % (Auto) [place] % (Auto) Lymph # (Auto) Baso # (Auto) Seg Neutrophils % Potassium Chloride Carbon Dioxide BUN 27 H Creatinine 1.4 H Glucose POC Glucose Calcium Phosphorus Troponin T 0.093 H Total Protein Albumin Urine pH 8.0 H Urine WBC (Auto) 142.0 H 02/15/22 02/15/22 02/16/22 05:00 12:37 03:59 RBC 3.22 L 3.02 L Hgb 9.7 L 9.3 L Hct 28.3 L 26.5 L MCHC 35 H RDW 13.1 L 13.1 L Lymph % (Auto) 6.3 L [place] % (Auto) 7.8 H Lymph # (Auto) 0.5 L Baso # (Auto) Seg Neutrophils % 83.3 H Potassium Chloride Carbon Dioxide BUN Creatinine Glucose POC Glucose 120 H Calcium Phosphorus Troponin T Total Protein Albumin Urine pH Urine WBC (Auto) 02/16/22 03:59 RBC Hgb Hct MCHC RDW Lymph % (Auto) [place] % (Auto) Lymph # (Auto) Baso # (Auto) Seg Neutrophils % Potassium Chloride Carbon Dioxide BUN 25 H Creatinine 1.5 H Glucose POC Glucose Calcium Phosphorus 2.20 L Troponin T Total Protein Albumin Urine pH Urine WBC (Auto) Chest x-ray: report reviewed, image reviewed Additional Studies: CHEST 1 VIEW 02/14/2022 9:40 PM INDICATION / CLINICAL INFORMATION: cough, hypoxia. COMPARISON: None available. FINDINGS: SUPPORT DEVICES: None. HEART / MEDIASTINUM: No significant abnormality. LUNGS / PLEURA: Suspected mild emphysema and mild central peribronchial thickening. No evidence for pneumonia, pulmonary edema or pleural effusion. No pneumothorax. ADDITIONAL FINDINGS: Calcific atherosclerosis of the thoracic aorta. IMPRESSION: 1. Mild chronic findings, as detailed above, without acute radiographic process. Allied health notes reviewed: nursing
[2022-02-17] MEDS: HEPARIN 5,000 UNIT/1 ML VIAL SUB-Q SCH ×2 (13:05→21:27)
[2022-02-17] MEDS: FAMOTIDINE 20 MG TAB PO SCH (13:05)
[2022-02-17] MEDS: levETIRAcetam 500 MG TAB PO SCH ×2 (13:05→21:31)
[2022-02-17] MEDS: CEFEPIME/NS 2 GM/100 ML 2 GM/100 ML BAG IV SCH ×2 (13:06→21:28)
--- NOTE | 2022-02-17 13:11 | Cat Scan Report ---
CT ABDOMEN AND PELVIS WITHOUT CONTRAST HISTORY: URINARY RETENTION COMPARISON: None. TECHNIQUE: Axial CT images were obtained through the abdomen and pelvis without IV contrast. Sagittal and coronal reformatted images. All CT scans at this location are performed using CT dose reduction for ALARA by means of automated exposure control. FINDINGS: CT ABDOMEN: Lung Bases: Minor subpleural atelectatic changes are noted in the posterior lower lobes. No infiltrat e or significant effusion. Liver: No significant abnormality. Biliary: No significant abnormality. Spleen: No significant abnormality. Unenlarged. Pancreas: No significant abnormality. Adrenals: No significant abnormality. Kidneys: There are a few scattered bilateral hyperdense renal cysts consistent with hemorrhagic cysts . No nephrolithiasis or hydronephrosis. Lymphatics: No lymphadenopathy. Vasculature: Moderate to severe diffuse atherosclerotic disease throughout the aorta and iliac arteri es. Bowel/Peritoneum: There is moderate to large fecal matter in the colon. No evidence for bowel obstruc tion or focal inflammation. The appendix is not confidently identified. CT PELVIS: : The bladder is decompressed with a Cruz catheter and grossly unremarkable. There is mild prostat omegaly measuring 5.7 cm. Osseous Structures: Osteopenia. Mild thoracolumbar spondylosis. No acute injury or bone lesion. Additional Findings: None IMPRESSION: Mild prostatomegaly. The bladder is decompressed with a Cruz catheter and grossly unremarkable. Bilateral hemorrhagic renal cysts. Moderate constipation. No acute inflammatory process, mass or adenopathy. Signer Name: Cyril Worrell Jr, MD Signed: 02/17/2022 1:06 PM Workstation Name: [id number]
--- NOTE | 2022-02-17 14:03 | Discharge Summary ---
Providers - Providers Date of Admission: 02/14/22 20:41 Attending physician: OMKAR YANEZ MD 02/14/22 20:44 Consult to Physician [CONS] Routine Comment: Consulting Provider: MAGNUS MATTHEWS Physician Instructions: Reason For Exam: sepsis 02/15/22 13:04 Occupational Therapy Evaluate and Treat [CONS] Routine Comment: Reason For Exam: Debility Physical Therapy Evaluation and Treat [CONS] Routine Comment: Reason For Exam: Debility Primary care physician: CONSTRUCTION ESTIMATOR Hospitalization Reason for admission: Sepsis Condition: Stable Hospital course: This is a 89 year-old male with known past medical history of vascular dementia, cerebral atherosclerosis, HTN, BPH with chronic indwelling catheter, recurrent UTIs, and seizure disorder admitted for septic shock secondary to UTI Hospital Course to Date: 02/15: Mentation improved, calm and pleasant but only AAO to self. Per patient's daughter patient does have dementia but functional at home. Patient is off pressors this am, BP still marginal, 250cc IVF bolus given. Patient remains afebrile, cultures pending. Continue current IV empiric for now. Per patient's daughter, patient has issues with his prostate and have had an indwelling catheter for over 5 years now. Patient follow with the [facility] and a nurse visit patient once a month to exchange the michael cath. She reported that patient was at [facility] last month for UTI received X1 day of IV abx then was discharge back home the next day. Indwelling Catheter was exchanged last month at [facility]. Will exchange michael catheter and monitor patient overnight in the ICU. Resume home meds once meds list is available, daughter to call nursing staffs today with current medications list. 02/16: Remains stable on RA, back to baseline mentation per patient's daughter. Still with borderline hypotension this am s/p 500 cc IVF, will continue gentle IVF hydration X1L. PT/OT ordered. Patient is stable for transfer to the floor. 02/17: Patient clinically stable no fever noted. Urine culture showing gram- negative rods no growth in blood cultures. Sidebar discussion with infectious disease patient can be switched to oral antibiotics at this time. I discussed with the daughter who will have the patient follow-up at [facility] for urology evaluation. CT abdomen and pelvis revealed decompressed bladder. Shows that the Michael is functioning. I did discuss with the daughter who tells me that the patient is nonambulatory but gets around in a wheelchair. Assessment and Plan #Septic Shock 2/2 #Urinary Tract Infection(UTI) secondary to gram-negative alison # BPH with Chronic Indwelling Catheter - Presented with AMS and hypotension required Levophed gtt. UA consistent for UTI - Urine culture with GNR, blood cultures with NGTD - Pressors off. still with borderline hypotension s/p 500 cc IVF - Continue cont. IVF hydration X1L - Continue current empiric IV Abx- Cefepine - Exchange Michael Catheter - Continue blood pressure monitor per protocol - Maintain MAP above 65 - Continue to F/U on B.cult - Daily CBC monitor #Acute Metabolic Encephalopathy-improved #Vascular Dementia #H/o Seizure Disorder - most likely secondary to above - back to baseline mentation per daughter - Treat underlying cause - Frequent reorientation - Avoid benzodiazepine to reduce the possibility of delirium - Prn analgesia for pain control - Maintenance of sleep-wake cycle - home AED resumed - Fall precaution, Seizure precaution #Hypertension - Presented with hypotension, BP still borderline s/p IVF bolus - Hold all antihypertensive regimen for now - Continue blood pressure monitor per protocol - Maintain MAP above 65 #GI/DVT Prophylaxis - PPI- Pepcid - Heparin subQ - SCD to bilateral lower extremities while in bed #Advance Care Planning - Disease education, care plan, diagnoses, and prognosis thoroughly discussed with patient's daughter via phone. All questions and concerns were addressed at this time. Patient's daughter verbalized understanding and agreed with current care plan. Patient is a FULL Code. Disposition: 06 HOME HEALTH CARE SERVICE Final Discharge Diagnosis (Prints w/discharge instructions): #Septic Shock 2/2. #Urinary Tract Infection(UTI) secondary to gram-negative alison. # BPH with Chronic Indwelling Catheter. #Acute Metabolic Encephalopathy-improved. #Vascular Dementia. #H/o Seizure Disorder. #Hypertension Time spent for discharge: 35 minutes Core Measure Documentation - Palliative Care Palliative Care/ Comfort Measures: Not Applicable - Core Measures Any of the following diagnoses?: none Exam - Physical Exam Narrative exam: General appearance: Present: no acute distress, well-nourished - EENT Eyes: Present: PERRL, EOM intact ENT: hearing intact - Neck Neck: Present: normal ROM - Respiratory Respiratory effort: normal Respiratory: bilateral: diminished - Cardiovascular Rhythm: regular Heart Sounds: Present: S1 & S2 - Extremities Extremities: no ischemia, pulses intact, pulses symmetrical Peripheral Pulses: within normal limits - Abdominal General gastrointestinal: soft, non-distended, normal bowel sounds - Integumentary Integumentary: Present: warm, dry - Psychiatric Psychiatric: appropriate mood/affect, cooperative - Neurologic Neurologic: CNII-XII intact, moves all extremities - Allied Health Allied health notes reviewed: nursing, case management - Constitutional Vitals: Temp Pulse Resp BP Pulse Ox 97.9 F 70 18 96/45 99 02/17/22 11:10 02/17/22 11:10 02/17/22 11:10 02/17/22 11:10 02/17/22 11:10 Plan Activity: advance as tolerated, fall precautions Diet: low fat Special Instructions: record daily weights, record daily BP diary Care Plan Goals: [facility] and also urologist per the primary care physician Follow up with: PRIMARY CARE, [Primary Care Provider] - 7 Days Prescriptions: Amoxicillin/K Clav Tab [Augmentin 875 mg] 1 tab PO Q12HR #20 tab Famotidine [Pepcid] 20 mg PO QDAY #30 tablet DOXYCYCLINE Hyclate [Vibramycin CAP] 100 mg PO Q12HR #20 capsule
[2022-02-17 21:11] LABS: Calcium 8.3 mg/dL (8.4-10.2)
[2022-02-17 21:59] VITALS: BP 126/52
== END 2022-02-17 22:56 | disposition home health service (06) | DRG 871 ==
LOC: ED 19:17 → CC1 20:41 → 3A 02-17 00:11
PROVIDERS: ADMIT Internal Medicine; ATTEND Internal Medicine
PROC: 06HY33Z Insertion of Infusion Device into Lower Vein, Percutaneous Approach (ICD-10-PCS; principal; 2022-02-14)
PROC: B54BZZA Ultrasonography of Right Lower Extremity Veins, Guidance (ICD-10-PCS; 2022-02-14)
DX: A41.50 Gram-negative sepsis, unspecified (principal); G92.8 Other toxic encephalopathy; R65.21 Severe sepsis with septic shock; E44.1 Mild protein-calorie malnutrition; E87.6 Hypokalemia; F01.50 Vascular dementia, unspecified severity, without behavioral disturbance, psychotic disturbance, mood disturbance, and anxiety; I67.2 Cerebral atherosclerosis; Z68.21 Body mass index [BMI] 21.0-21.9, adult; G40.909 Epilepsy, unspecified, not intractable, without status epilepticus; N40.1 Benign prostatic hyperplasia with lower urinary tract symptoms; R33.8 Other retention of urine; Z82.49 Family history of ischemic heart disease and other diseases of the circulatory system
CPT/HCPCS: 36415; 71045; 74176; 80048; 80053; 81001; 82140; 82962; 83690; 83735; 84100; 84484; 85025; 85027; 86850; 86900; 86901; 87040; 87076; 87086; 87186; 93005; 99285; G0378; J2354; J0692; J1644; J3480; J7030; J7040; J7120